=== PATIENT | male | born 1950 | race Caucasian/White ===

== ENCOUNTER 2017-03-23 13:13 | Inpatient (IN) | payer OTHER ==
[~2017-03-23] VITALS: Ht 167.6 cm; Wt 64.4 kg
[2017-03-23 13:19] VITALS: Ht 167.6 cm; Wt 64.4 kg
[2017-03-23 15:11] LABS: BASOPHIL % 0.1 % (0-2); PLATELET COUNT 162 x10^3mcL (130-400); RED CELL DISTRIBUTION WIDTH 14.3 % (11.5-14.5)
[2017-03-23 15:21] LABS: CALCIUM 8.5 mg/dL (8.5-10.1); CARBON DIOXIDE 23.5 mmol/L (21-32); CHLORIDE SERUM 97 mmol/L (98-107); CREATININE SERUM 0.8 mg/dL (0.7-1.3); GFR1 > 60 mL/min; GLUCOSE SERUM 121 mg/dL (74-106); POTASSIUM SERUM 3.4 mmol/L (3.5-5.1); SODIUM SERUM 132 mmol/L (136-145)
[2017-03-23 15:29] LABS: ALKALINE PHOSPHATASE 228 U/L (46-116); ALT/SGPT 186 U/L (16-63); AST/SGOT 48 U/L (15-37); BILIRUBIN TOTAL 5.56 mg/dL (0.20-1.00); TOTAL PROTEIN, SERUM 6.6 g/dL (6.4-8.2)
[2017-03-23 15:45] LABS: AMYLASE 555 U/L (25-115)
[2017-03-23 16:19] LABS: LIPASE 6514 IU/L (73-393)
[2017-03-23 16:40] LABS: UA SPECIFIC GRAVITY <=1.005 (1.005-1.035); microscopic required? YES; urine erythrocyte 2+ (NEGATIVE)
[2017-03-23 17:58] LABS: CHOLESTEROL/HDL RATIO 4.2; MAGNESIUM 2.4 mg/dL (1.8-2.4); PHOSPHOROUS 2.7 mg/dL (2.5-4.9)
[2017-03-23 18:13] LABS: AMPHETAMINE QUAL UR NONE DETECTED (NEG <=1000)
[2017-03-23 18:14] VITALS: BP 145/94
[2017-03-23 19:00] LABS: T3 TOTAL 0.96 ng/mL
[2017-03-23 19:10] LABS: FREE T4 1.42 ng/dL (0.76-1.46); FREE THYROXINE INDEX 3.3 ug/dL (1.4-4.5); T4(THYROXINE) 9.4 ug/dL (4.7-13.3)
[2017-03-23 22:00] VITALS: BP 132/81
[2017-03-24] VITALS (9 sets, daily range): BP systolic 123–150; BP diastolic 72–88
[2017-03-24 13:38] LABS: PLATELET COUNT 167 x10^3mcL (130-400); RED CELL DISTRIBUTION WIDTH 14.3 % (11.5-14.5)
[2017-03-24 13:41] LABS: BASOPHIL % 0 % (0-2)
[2017-03-24 13:44] LABS: CALCIUM 8.2 mg/dL (8.5-10.1); CARBON DIOXIDE 22.5 mmol/L (21-32); CHLORIDE SERUM 105 mmol/L (98-107); CREATININE SERUM 0.7 mg/dL (0.7-1.3); GFR1 > 60 mL/min; GLUCOSE SERUM 95 mg/dL (74-106); MAGNESIUM 2.3 mg/dL (1.8-2.4); PHOSPHOROUS 2.1 mg/dL (2.5-4.9); POTASSIUM SERUM 3.8 mmol/L (3.5-5.1); SODIUM SERUM 137 mmol/L (136-145)
[2017-03-25 05:41] VITALS: BP 139/78
[2017-03-25 07:50] LABS: BILIRUBIN DIRECT 0.94 mg/dL (0.0-0.2); BILIRUBIN TOTAL 1.49 mg/dL (0.20-1.00)
[2017-03-25 07:51] LABS: ALBUMIN 2.4 g/dL (3.4-5.0); TOTAL PROTEIN, SERUM 5.9 g/dL (6.4-8.2)
[2017-03-25 08:00] VITALS: BP 139/89
[2017-03-25 13:23] VITALS: BP 150/83
[2017-03-25] MEDS ORDERED: TYL325 PO (16:22)
[2017-03-25] MEDS ORDERED: COL100 PO (16:22)
[2017-03-25] MEDS ORDERED: AUG500 PO (16:27)
[2017-03-25] MEDS ORDERED: BD LACTINEX1.4 MG PO (16:27)
[2017-03-25 17:09] VITALS: BP 150/83
== END 2017-03-25 18:14 | disposition home or self-care (01) | DRG 417 ==
LOC: ED 13:13 → DU 16:56
PROVIDERS: Emergency Medicine; Family Medicine; Surgery
PROC: 0FT44ZZ Resection of Gallbladder, Percutaneous Endoscopic Approach (ICD-10-PCS; principal; 2017-03-24 14:00)
DX: K80.00 Calculus of gallbladder with acute cholecystitis without obstruction (principal); K85.10 Biliary acute pancreatitis without necrosis or infection; N17.0 Acute kidney failure with tubular necrosis; E87.1 Hypo-osmolality and hyponatremia; E44.0 Moderate protein-calorie malnutrition; E87.6 Hypokalemia; E04.1 Nontoxic single thyroid nodule; R31.9 Hematuria, unspecified; R73.03 Prediabetes; K76.0 Fatty (change of) liver, not elsewhere classified; F10.10 Alcohol abuse, uncomplicated; Z68.23 Body mass index [BMI] 23.0-23.9, adult; Z87.891 Personal history of nicotine dependence
CPT/HCPCS: 84439; 90658; C1887; J0290; J0690; J1170; J1885; J2405; J2704; J2710; J3010; J3490; J7030; J7120; Q0092; Q9967